=== PATIENT | female | born 1955 | race Caucasian/White ===

== ENCOUNTER 2020-07-07 11:45 | Emergency (ER) | payer OTHER ==
[~2020-07-07] VITALS: Ht 154.9 cm; Wt 89.4 kg
[2020-07-07] MEDS ORDERED: CHILDREN'S ASPI81 MG PO (12:54)
[2020-07-07] MEDS ORDERED: ATORVASTATIN CA10 MG PO (12:54)
[2020-07-07] MEDS ORDERED: CIPRO500 MG PO (17:22)
[2020-07-07] MEDS ORDERED: KETO10TA2 PO (17:22)
== END 2020-07-07 19:49 | disposition home or self-care (01) ==
LOC: ER 11:45
DX: N30.00 Acute cystitis without hematuria (principal)